=== PATIENT | female | born 1980 | race Caucasian/White ===

== ENCOUNTER 2025-05-21 19:53 | Emergency (ER) | payer BC, SELFPAY ==
--- OUTSIDE RECORDS SUMMARY | 2025-05-21 19:55 | XMS_ITS | Data Portability ---
Author Organization [place] - [facility], [employer] Address [address] [place] [address] Assessment Encounter Date Assessment Date Assessment LastModified by Organization Details LastModified Time 01/05/2025 01/05/2025 The clinical presentation and imaging findings are consistent with early insertional Achilles tendinitis, likely exacerbated by underlying Rhea s deformity and mechanical factors. Recommended a multi-modal conservative approach including strict use of supportive footwear (preferably clogs or mules to avoid pressure on the posterior heel), avoidance of barefoot walking, and use of [id number] orthotic inserts for additional arch support, especially during athletic activities. Provided a detailed home stretching and flexibility program targeting the Achilles and plantar fascia, emphasizing the need for consistent daily stretching for at least two months. Advised to avoid deep lunges, heavy lifting, running, jumping, and stair-stepping activities until symptoms resolve. For inflammation control, recommended ice application in the evening and heat in the morning, as well as a short course of oral steroids (Medrol dose pack) to reduce acute inflammation, with instructions to begin the medication the following morning and to monitor for side effects, especially in the context of concurrent phentermine use. Discussed the risks and benefits of oral steroids and provided instructions for use. Advised against corticosteroid injection at the Achilles insertion due to risk of tendon rupture. Provided education on topical anti-inflammatori es (Voltaren gel) as an adjunct. The mild Rhea s deformity is contributing to posterior heel irritation and Achilles symptoms. Emphasized the importance of shoe modifications to minimize pressure on the posterior heel. Discussed that surgical intervention is not indicated at this time given the mild nature and early presentation. Will monitor for progression. The plantar calcaneal spur is a chronic finding consistent with prior plantar fasciitis. No current symptoms attributable to this, so no intervention is required at this time. Advised on ongoing plantar fascia stretching to prevent recurrence. 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 No acute symptoms related to this structure. Recommended continued use of arch support and orthotics as needed for comfort and prevention of overuse symptoms. No current evidence of active plantar fasciitis. Provided education on prevention strategies and stretching. The patient s right foot demonstrates a flatter arch, likely related to the accessory navicular. Advised on the use of orthotics and supportive footwear to optimize biomechanics and reduce risk of future overuse injuries. Will follow up in 2-3 weeks to assess response to conservative management. florin Not available 01/05/2025 14:13:03 01/19/2025 01/19/2025 For the right Achilles tendinopathy, the patient was advised to continue with the current regimen of stretching exercises, heat in the morning, and ice at night. Supportive footwear and modified inserts were provided, including an additional heel lift and bilateral first-ray cutout, to further offload the Achilles and plantar fascia. The patient was instructed to avoid high-impact activities and to continue activity modifications at the gym. The clinical reasoning is based on persistent localized tenderness, morning stiffness, and improvement with conservative measures. For the new onset of right plantar heel pain, consistent with plantar fasciitis, a similar conservative approach was recommended. The patient was counseled to continue supportive shoes and inserts, and to use ice as needed. A two-week course of a prescription oral anti-inflammatory was prescribed to address ongoing inflammation, with dosing instructions provided. The patient was informed that if the plantar heel pain becomes the predominant issue or fails to improve, a corticosteroid injection could be considered as a next step. Referral to physical therapy for modalities such as deep tissue massage or dry needling was discussed as an option if symptoms persist beyond the next three weeks. The patient was advised to monitor symptoms and return sooner if there is significant worsening. Follow-up was scheduled in three weeks, with instructions to cancel if symptoms resolve. florin Not available 01/19/2025 12:14:13 02/09/2025 02/09/2025 For right planta r fasciitis, a corticosteroid injection was recommended and performed today to address persistent focal heel pain and inflammation not fully responsive to conservative measures, including stretching, orthotic modification, and NSAIDs. The patient was counseled regarding expected post-injection course, including the possibility of a transient steroid flare, and advised to use ibuprofen as needed for discomfort. Instructions were given to avoid high-impact or weighted activities until pain-free for at least two weeks, and to gradually reintroduce resistance and duration of exercise thereafter. Follow-up was recommended in two to three weeks, with the option to cancel if symptoms resolve. For right Achilles tendinopathy, the patient was advised to continue current stretching regimen, use of heat in the morning and ice at night, and to maintain use of the modified orthotics with heel lift. No additional intervention was deemed necessary at this time given reported improvement and absence of new symptoms. PROCEDURES: PLANTAR FASCIA INJECTION, RIGHT FOOT: Prior to the procedure, consent was obtained. A time-out confirmed correct patient, site, and laterality (right foot, plantar heel). The area was prepped with cold spray and allowed to dry. Using a sterile technique, a 27 gauge needle was used to inject a mixture of local anesthetic and corticosteroid (1cc of 2% lido plain, 1cc of Kenalog-40, ( J1100, 1 unit) and 1 cc of Dexamethasone (J3301, 4 units)) into the plantar fascia at the point of maximal tenderness, approaching from the medial aspect to minimize discomfort. The patient tolerated the procedure well. Hemostasis was achieved and a sterile dressing was applied. Post-procedure instructions were reviewed, including activity modification and signs of complications. florin Not available 02/09/2025 15:23:27 Plan of Treatment Reminders Order Date Submit Date Provider Last Modified By Organization Details Last Modified Time Details Appointments None recorded. Lab None recorded. Referral None recorded. Procedures None recorded. Surgeries None recorded. Imaging XR, foot, 3 or more view 2024 025 [facility] Office, [address], [place], [address], 16:29:32 Medication Orders meloxicam 7.5 mg tablet 2024 025 [facility] [id number] [facility] [employer], [address], [place], [address], 12:13:28 Medrol (Dario) 4 mg tablets in a dose pack 2024 025 [facility] [id number] [facility] [employer], [address], [place], [address], 5 14:13:25 Patient TargetsNo targets recorded. Patient InstructionsNo instructions recorded. Reason for Referral None Reported. Results Created Date Observation Date Name Description Value Unit Range Abnormal Flag Note LastModifiedBy Organization Detail LastModifiedTime 01/06/20 25 XR, foot, 3 or more view No observ ation record ed. [email or web address] [place] [facility] [address], [place], [address], 01/05/2025 14:10:23 Result Notes None recorded. Problems Name Problem SNOMED Code Status Onset Date Resolution Date Notes Provider Name and Address Organization Details Recorded Time Morbid obesity 977109371 Active 2021 Morbid obesity; Original Code: 086251446 Original Codesystmona m: SNOMED CT Classi fication: Medical C onfirmati on Status: Probable Not Available [facility] 3 08:54:19 Stress fracture of foot 018611181 Active 2021 Stress fracture of foot; Original Code: 776418035 6 Origina l Kathleen m: SNOMED CT Classi fication: Medical C onfirmati on Status: Confirmed Not Available [facility] 3 08:54:20 Metatarsal trevor 16139931 Active 2021 Metatarsa lgia; Original Code: 30017919 Original Codesystmona m: SNOMED CT Classi fication: Medical C onfirmati on Status: Confirmed Not Available [facility] 3 08:54:20 Problem Notes None recorded. Medical Equipment None Reported. Allergies Allergen ID Allergen Name Allergen Category Reaction Reaction Severity Criticality Documentation Date Start Date Code Code System Note Provider Name and Address Organization Details Recorded Time 38067 amoxicill in medicatio n Not available Not available Not available 10/22/2022 723 RxNorm Comme nt: React ion Class : Aller gy Al lergy Ident ifier : d0008 8 All ergy Categ ory: Multu m Drug Ident ifier Iden tifie r Assig adolfo Autho rity: 97943 _[place]_S PM_FI N ; Not Available [facility] 3 08:51:40 33799 Product containin g penicilli n (product) medicatio n Not available Not available Not available 01/05/2025 37126 8001 SNOMED Lorie Thomas null, [place] - [facility] 5 11:09:14 01811 codeine medicatio n Not available Not available Not available 01/05/2025 2670 RxNorm Lorie ramos, [place] - [facility] 5 11:09:23 Medications Name Sig Start Date Stop Date Status Note LastModified by Organization Details LastModified Time bupropion HCl SR 150 mg tablet,12 hr sustained-r elease TAKE 1 TABLET BY MOUTH TWO TIMES DAILY. active Not Available Not Available No t Available clindamycin HCl 300 mg capsule TAKE 1 CAPSULE (300 MG) BY MOUTH TWO TIMES DAILY FOR 7 DAYS. 01/05 completed Not Available Not Available Not Available metronidazo le 0.75 % (37.5 mg/5 gram) vaginal gel INSERT 1 APPLICATO RFUL INTO THE VAGINA AT BEDTIME FOR 5 DAYS. active Not Available Not Available No t Available topiramate 25 mg tablet TAKE 2 TABLETS BY MOUTH AT BEDTIME active Not Available Not Available No t Available phentermine 37.5 mg tablet PLEASE SEE ATTACHED FOR DETAILED DIRECTION S active Not Available Not Available No t Available phentermine 30 mg capsule PLEASE SEE ATTACHED FOR DETAILED DIRECTION S active Not Available Not Available No t Available meloxicam 7.5 mg tablet TAKE 1 TABLET BY MOUTH EVERY 12 HOURS active Not Available Not Available No t Available cephalexin 500 mg capsule TAKE 1 CAPSULE (500 MG) BY MOUTH TWO TIMES DAILY FOR 5 DAYS. 01/05 completed Not Available Not Available Not Available lisinopril 30 mg tablet TAKE 1 TABLET BY MOUTH ONCE DAILY. active Not Available Not Available No t Available methylpredn isolone 4 mg tablets in a dose pack TAKE 6 TABLETS ON DAY 1 DIRECTED ON PACKAGE AND DECREASE BY 1 TAB EACH DAY FOR A TOTAL OF 6 DAYS active Not Available Not Available No t Available betamethaso ne dipropionat e 0.05 % topical ointment PLEASE SEE ATTACHED FOR DETAILED DIRECTION S active Not Available Not Available No t Available metformin ER 500 mg tablet,exte nded release 24 hr PLEASE SEE ATTACHED FOR DETAILED DIRECTION S active Not Available Not Available No t Available nitrofurant oin monohydrate /macrocryst als 100 mg capsule TAKE 1 CAPSULE BY MOUTH TWO TIMES DAILY FOR 5 DAYS. 01/05 completed Not Available Not Available Not Available Vitals Date Recorded Body height Body weight Provider Name and Address Organization Details Last Updated DateTime 01/05/2025 172.72 cm 040614.63 g Lorie Thomas [place] [facility] 01/05/2025 11:08:57 Social History None recorded. Functional Status None recorded. Mental Status None recorded. Family History Nothing Reported. Medical History No medical history recorded. Gynecological HistoryNo gynecological history recorded. Obstetrics History GPAL:G 0 P 0 0 0 0 Past Encounters Encounter ID Performer Location Encounter Start Date Encounter Closed Date Diagnosis/Indication Diagnosis SNOMED-CT Code Diagnosis ICD10 Code Diagnosis IMO Codes Diagnosis Note [id number] SOLA LORENZO DPM [place] [facility] [address] [place] [address] 01/05/2025 11:07:47 01/05/2025 16:29:32 Right Achilles tendinitis [id number] 70997 M76.61 7853911 Total time spent on the E/M service was 45 minutes, which included reviewing patient history, performing a medically appropriat e examinatio n, counseling the patient, and documentin g clinical informatio n. This time excludes any procedures or imaging potentiall y obtained during this visit. 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 This time excludes any procedures or imaging potentiall y obtained during this visit. Calcaneal spur of right foot 0328526777 47510 M77.31 8121032 Congenital deformity of foot 658306187 Q66.89 0570816 Plantar fa scial fibromatosis 65223574 M72.2 1979 Acquired p es planus of right foot 8249532399 21257 M21.41 [id number] SOLA LORENZO DPM [place] [facility] [address] [facility] [address] [place] [address] 02/09/2025 14:56:35 02/10/2025 12:19:57 Right Achilles tendinitis [id number] 47453 M76.61 6391585 Calcaneal spur of right foot 7493639809 53873 M77.31 6110231 Congenital deformity of foot 841517847 Q66.89 6295194 Plantar fa scial fibromatosis 53635379 M72.2 1980 Acquired p es planus of right foot 5918615184 71737 M21.41 2977990 Health Concerns Section Related Observation LastModified by Organization Detai ls LastModified Time None Recorded Concern Status LastModified by Organization Details LastModified Time None Recorded Advance Directives Directive None Recorded Payers Insurance Date Sequence Insurance Name Policy Number Policy Clarke Covered Member ID Clarke Member ID Guarantor Name 02/28/2025 1 [employer] [id number] 3 Latanya Shelton [id number] MB Latanya Shelton Notes Date Note Type Note Provider Name and Address Organization Details Recorded Time 01/05/2025 text/html The patient presents as a new patient for evaluation of right-sided heel pain, ongoing for approximately two weeks. They describe the pain as being located at the back of the right heel, particularly along the Achilles region, and note that it is especially bothersome when going up and down stairs or putting weight on the area. The pain is described as sharp and shooting up the leg during these activities. There is no history of trauma, new shoes, increased activity, or occupational changes. 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 They deny any noticeable bruising or swelling. There is a history of previous pain on the bottom of the heel, but never in the current location. The patient reports that the pain is worse in the morning and improves somewhat with movement, but persists throughout the day and is aggravated by gym activities, though they have been able to modify their exercise routine. They have attempted self-care measures including ice, Tylenol, elevation, and stretching exercises as suggested by a family member, with only minimal relief. The patient s mother suggested plantar fasciitis, and the patient has tried morning stretches and flexing the foot. The patient also notes that their right knee has started to hurt, likely due to compensatory gait changes. There is a history of twisting the right ankle several times in the past, but no significant injuries or fractures. The patient reports a flatter arch on the right foot compared to the left, and has been told they have an accessory bone in the right foot. They have a history of plantar fasciitis but state that is not the current issue. SOLA LORENZO DPM [address] [place], [address], [facility] 01/05/2025 14:13:31 01/19/2025 text/html The patient presents for follow-up of right Achilles heel pain, reporting approximately 30% improvement since the last visit. They have been compliant with prescribed exercises, using heat in the morning and ice at night. A recent course of oral steroids provided some relief, taking the edge off the pain. However, after a busy weekend involving significant activity, including attending an outdoor graduation and painting, they experienced a notable increase in pain, particularly on Friday. The pain is described as worse when going down stairs and is most severe in the morning. The patient notes that while the Achilles pain persists, a new area of discomfort has developed on the bottom of the right heel, which started after the recent activity. They identify this as a separate but possibly related issue. The patient has been modifying activities at the gym, avoiding lunges, high steps, and high jumps, and has been using supportive footwear and inserts as previously recommended. No pain is reported during exercises when performed slowly. The patient expresses concern about the new heel pain and is interested in further management options. SOLA LORENZO DPM [address] [place], [address], [place] - [facility] 01/19/2025 12:14:21 02/09/2025 text/html The patient presents for follow-up of right Achilles tendinopathy and right plantar fasciitis. They report improvement in overall symptoms since the last visit, particularly with the use of prescribed meloxicam, which they state has been helpful. However, they continue to experience persistent pain localized to the bottom of the right heel, consistent with plantar fasciitis, describing the pain as approximately 6 out of 10 in severity. Morning tightness remains an issue, though it is less severe than previously. The patient has been compliant with stretching exercises, use of heat in the morning, ice at night, and modified orthotics with an additional heel lift and bilateral 1st ray straight cutouts. They deny any new injuries or significant changes in activity level, though they have avoided lunging and have limited their exercise to bodyweight activities. No recent imaging or outside work-up is reported. SOLA LORENZO DPM [address] [place], [address], [facility] 02/09/2025 15:23:42 OBGyn Episode No OBEpisode recorded.
--- OUTSIDE RECORDS SUMMARY | 2025-05-21 19:55 | XMS_ITS | Clinical Summary ---
Author Organization [facility] Address [address] [place] [id number] Care Team Providers Care Secret Code Expert Name Role Phone Nina Li RD Unavailable [phone] Pcp, No Primary Care Provider Unavailabl Tennille Blake Unavailable [phone] Allergies Active Allergy Reactions Criticality Noted Date Comments Amoxicillin Hives 08/25/2006 Acetaminophen-Codeine GI Upset 02/28/2009 Medications levonorgestrel intrauterine device (Mirena) 20 mcg/24 hours (7 yrs) 52 mg IUD Inject 1 Device intrauterine every 5 years. 0 07/19/20 21 Active multivitamin capsule Take 1 Capsule by mouth once daily. 0 10/27/19 22 Active lisinopriL (PRINIVIL; ZESTRIL) 30 mg tabletIndicatio ns:Hypertension , unspecified type Take 1 Tablet (30 mg) by mouth once daily. 90 Tablet 4 08/08/20 23 Active Lactobac no.41/Bifidobac t no.7 (PROBIOTIC-10 ORAL) 08/09/20 23 Active meloxicam 7.5 mg tablet Take 7.5 mg by mouth two times daily. Active buPROPion 150 mg Sustained-Relea se tabletIndicatio ns:Obesity, Class III, BMI 40-49.9 (morbid obesity) (HC) Take 1 Tablet (150 mg) by mouth two times daily. 180 Tablet 01/28/20 25 Active phentermine 37.5 mg tabletIndicatio ns:Obesity, Class III, BMI 40-49.9 (morbid obesity) (HC) Take 1 Tablet (37.5 mg) by mouth once daily before a meal. Take before breakfast. Phentermine will need to be discontinued 4 days prior to a surgical procedure. 90 Tablet 01/28/20 25 Active topiramate 25 mg tabletIndicatio ns:Obesity, Class III, BMI 40-49.9 (morbid obesity) (HC) Take 2 Tablets (50 mg) by mouth at bedtime. 180 Tablet 01/28/20 25 Active metFORMIN (GLUCOPHAGE XR) 500 mg Extended-Releas e tabletIndicatio ns:Obesity, Class III, BMI 40-49.9 (morbid obesity) (HC) TAKE 2 TABLETS (1,000 MG) BY MOUTH TWICE A DAY WITH MEALS 360 Tablet 05/06/20 25 Active metFORMIN 500 mg Extended-Releas e tabletIndicatio ns:Obesity, Class III, BMI 40-49.9 (morbid obesity) (HC) Take 2 Tablets (1,000 mg) by mouth two times daily with meals. 360 Tablet 01/28/20 25 2024 Discontinued Active Problems Problem Noted Date Diagnosed Date Morbid obesity with BMI of 50.0-59.9, adult 10/16 Weight gain 10/26/2021 IUD (intrauterine device) in place 09/12/2021 Overview (09/12/2021): Mirena Obesity, morbid, BMI 50 or higher 12/05/2015 Tonsillar hypertrophy 12/05/2015 Vitamin D deficiency 10/11/2015 HTN (hypertension) 06/14/2008 Overview (10/31/2009): Updated by system to replace inactive record JOSSIE 09/10/2010 AHI-13 Overview (09/24/2010): AHI 13 Pap smear for cervical cancer screening Overview (09/18/2021): 08/2021 NIL/HPV negative. Plan: Pap/HPV due 08/2026 Resolved Problems Problem Noted Date Diagnosed Date Resolved Date Supervision of other normal 09/29/2006 04/07/2007 Infections of genitourinary tract antepartum 7 04/07/2007 Transient hypertension of pr egnancy, unspecified as to episode of care 08/25/20062006 Encounters Date Type Department Care Team Description 05/06/[address] [phone] Tennille Abernathy PA Refill Request (Metformin) from Last 3 Months Immunizations Immunization Administration Dates Next Due AMB Influenza, IIV4 PF (=>6 mos Flulaval,Fluzone Fluarix)(Flu Clinic Only) 06/01/2015 COVID-19 VACCINE SPIKEVAX (M ODERNA 50MCG/0.5ML) 12YO+ PFS 07/23/2024 COVID-19 vaccine (Pfizer-Bio NTech 30mcg/0.3mL) 12YO+ BIVALENT PF, MDV 07/22/2022 COVID-19 vaccine (Pfizer-Bio NTech 30mcg/0.3mL) PF, MDV 08/23/2021 INFLUENZA, IIV3 PF (AGE >= 6 MO) 07/23/2024 Influenza, IIV3 (Age >=3 years) 05/29/2010,06/14,08/25/2006 Influenza, IIV4 10/02/2023,,07/26/2021,2017 Td (Age >=7 Years) 12/05/2003 Tdap 11/05/2017 Family History Medical History Relation Name Comments Hypertension Father Thyroid Disease Father hyper Heart attack Maternal Grandfather Obesity Maternal Grandfather Hyperlipidemia Maternal Grandmother Hypertension Maternal Grandmother Obesity Maternal Grandmother Other Maternal Grandmother MS Hypertension Mother Obesity Mother Hypothyroidism Paternal Aunt Cancer Paternal Grandfather lung Other Paternal Grandmother MS Relation Name Status Comments Brother Alive Father Alive Maternal Grandfather Maternal Grandmother Alive Mother Alive Paternal Aunt Alive Paternal Grandfather Paternal Grandmother Alive Sister Alive Son Alive Social History Tobacco Use Types Packs/Day Years Used Date Smoking Tobacco: Never Smokeless Tobacco: Never Tobacco Cessation:Counseling Given: Not Answered Alcohol Use Standard Drinks/Week Comments Yes 0 (1 standard drink = 0.6 oz pur e alcohol) rare PHQ-2 Answer Date Recorded PHQ-2 TOTAL SCORE 1 08/08/2023 Social Connections Answer Date Recorded Do you often feel lonely or isolated from those around you? 0 07/23/2024 Financial Resource Strain Answer Date R ecorded Difficulty of Paying Living Expenses 3 07/23/2024 Difficulty of Paying Living Expenses Not on file 07/23/2024 Food Insecurity Answer Date Recorded Do you worry your food will run out before you are able to buy more? 1 07/23/2024 Transportation Needs Answer Date Record ed Does lack of transportation keep you from medica l appointments? 1 07/23/2024 Does lack of transportation keep you from work, meetings or getting things that you need? 1 07/23/2024 Housing Stability Answer Date Recorded What is your housing situation today? 1 07/23/2024 Utilities Answer Date Recorded Do you have trouble paying f or utilities (for example, heat, electricity, water, phone)? 1 07/23/2024 Comments No Sex and Gender Information Value Date Recorded Sex Assigned at Female 08/22/2021 7:37 PM MEDICAL VOUCHER CLERK Legal Sex Female 5:23 AM MEDICAL VOUCHER CLERK Gender Identity Female 08/22/2021 7:37 PM MEDICAL VOUCHER CLERK Sexual Orientation Not on file Occupation Industry Job Start Date Job End Date Diploma [employer] Not on file Not on file Not on f ile Obstetrics History Para Term AB IAB SAB Ectopic Multiple Livin g Live Births 4 2 2 0 0 0 0 0 2 2 Date Outcome GA Total Labor Labor/2nd/3rd Weight Sex Type Anes PTL Elisabeth A1 A5 Name Clin Term Term 2003 39w 0d 3.29 kg (7 lb 4 oz) M Vag IV Meds Livin g Armando Drevl ow Delivery Location:[facility] 2006 39w 0d 4h 00m/ 3.15 kg (6 lb 15 oz) F VAGINA L ETIENNE IV Meds Livin g 9 9 Hortensia Drevl ow Delivery Location:[facility] Comments:stone bulb fo r gestational hypertension Comments blood type B postive Last Filed Vital Signs Vital Sign Reading Time Taken Comments Blood Pressure 134/78 01/27/2025 11:00 AM CDT Pulse 74 01/27/2025 11:00 AM CDT Temperature 36.9 C (98.5 F) 09/22/2023 8:03 AM MEDICAL VOUCHER CLERK Respiratory Rate 18 09/22/2023 8:03 AM MEDICAL VOUCHER CLERK Oxygen Saturation 99% 08/04/2024 8:56 AM MEDICAL VOUCHER CLERK Inhaled Oxygen Concentration - - Weight 147.4 kg (325 lb) 01/27/2025 12:00 PM CDT Height 173.1 cm (5' 8.15) 01/27/2025 12:00 PM C DT Body Mass Index 49.2 01/27/2025 12:00 PM CDT Plan of Treatment Upcoming Encounters Date Type Department Care Team (Late st Contact Info) Description 05/25/2025 2:00 PM CDT Nutrition/Dieticia n [address] [phone] Christine Krause, ISA [address] [place] [address] 05/26/2025 8:30 AM CDT Office Visit [facility] [address] [place] [address] Tennille Abernathy PA [address] [place] [address] Health Maintenance Due Date Last Done Comments Hepatitis B series for 19+ (1 of 3 - 19+ 3-dose series) 2001 HPV series for age 9-45 (1 - 3-dose SCDM series) 2009 Depression screening for age 12+ 08/08/2024 08/08/2023, 07/17/2023, 07/17/2023, Additional history exists Influenza Vaccine (#1) 2025 4, 10/02/2023, 07/22/2022, Additional history exists BMI (ht and wt on same day) for age 18+ 01/27/2026 01/27/2025, 01/27/2025, 10/28/2024, Additional history exists Pap test for age 21-65 08/23/2026 2, 08/23/2021, 11/05/2017, Additional history exists Tetanus booster 11/06/2027 11/05/2017, 12/05/2003 RSV vaccine for adults or (1 - 1-dose 75+ series) 2057 Hepatitis C screening for age 18-79 Completed 07/22/2022 HIV for age 15-65 Completed 08/08/2023 COVID-19 vaccine series Completed 07/23/20 24, 07/22/2022, 08/23/2021, Additional history exists Pneumococcal series for age 6-49 Aged Out No longer eligible based on patient's age to complete this topic Procedures Procedure Name Priority Date/Time Associated Diagnosis Comments ANTI HIV 1/2 Routine 08/08/2023 11:10 AM MEDICAL VOUCHER CLERK Screening for condition ANTI HCV Routine 07/22/2022 8:29 AM MEDICAL VOUCHER CLERK Need for hepatitis C screening test HPV HIGH RISK Routine 08/23/2021 9:25 AM MEDICAL VOUCHER CLERK Screening for cervical cancer from Last 3 Months or Most Recently Relevant to Health Maintenance Results * ANTI HIV 1/2 (08/08/2023 11:10 AM MEDICAL VOUCHER CLERK) Pathologist [facility] HIV-1/HIV-2 SCREEN Non-Reacti ve Non-Reacti ve 08/08/2023 9:14 PM MEDICAL VOUCHER CLERK [facility] Comment:HIV-1 p24 and HIV-1/ HIV-2 Ab Not Detected. Blood BLOOD SPECIMEN / Unknown Venipuncture / Unknown 08/08/2023 11:10 AM MEDICAL VOUCHER CLERK 08/08/2023 11:13 AM MEDICAL VOUCHER CLERK us Ander Lo DO SEND OUTS Final Res ult [facility] [address] [place] [address], * ANTI HCV (07/22/2022 8:29 AM MEDICAL VOUCHER CLERK) HEPATITIS C ANTIBODY Non-React ella Non-React ella 07/22/2022 2:15 PM MEDICAL VOUCHER CLERK [facility] Comment:Antibodies to HCV no t detected; does not exclude the possibility of exposure to HCV. Blood BLOOD SPECIMEN / Unknown Venipuncture / Unknown 07/22/2022 8:29 AM MEDICAL VOUCHER CLERK 07/22/2022 8:31 AM MEDICAL VOUCHER CLERK Ander Guerrero Teresita DO SEND OUTS Final Res ult [facility] [address] [place] [address], * HPV HIGH RISK (08/23/2021 9:25 AM MEDICAL VOUCHER CLERK) TYPE 16 Negative Negative 08/27/2021 11:22 AM MEDICAL VOUCHER CLERK [facility] TYPE 18 Negative Negative 08/27/2021 11:22 AM MEDICAL VOUCHER CLERK [facility] OTHER HIGH RISK TYPES Negative Negative 08/27/2021 11:22 AM MEDICAL VOUCHER CLERK [facility] Other (Cervical) Non-Blood / Unknown 08/23/2021 9:25 AM MEDICAL VOUCHER CLERK 08/23/2021 5:15 PM MEDICAL VOUCHER CLERK Narrative [facility] - 08/27/2021 11:22 AM MEDICAL VOUCHER CLERK HPV types 16, 18, 31, 33, 35, 39, 45, 51, 52, 56, 58, 59, 66 and 68 DNA were undetectable or below the pre-set threshold. Methodology: Brayan Cielo 4800 HPV Test Ander Hallmarixa Lo DO MICROBIOLOGY Final Res ult Performing Organization Address City/[facility]/ZIP Co de Phone Number [facility] [address] [place] [address], from Last 3 Months or Most Recently Relevant to Health Maintenance Insurance [phone] [id number] (Work) [address] [place] [address] [facility] MED[facility] Advance Directives * Full Code (Latest Code Status on File) Date Activated Date Inactivated Comments 08/07/2022 10:39 AM 08/08/2022 2:28 AM Question Answer Comments Code Status Discussion: Reviewed Preferences * Full Code Date Activated Date Inactivated Comments 08/07/2022 9:09 AM 08/07/2022 10:39 AM Question Answer Comments Code Status Discussion: Reviewed Preferences Care Teams Secret Code Expert Relationship Specialty Start Date End Date Pcp, No . PCP - General 12/01/[address] [place] [address] Geoscientist 01/22/22 Tennille Abernathy PA [address] [place] [id number] Physician Drop Hammer Set Up Operator 01/18/25
[2025-05-21 20:12] VITALS: BP 160/102; PULSE 82; RESP 16; TEMP 36.7; O2SAT 98; BMI 51.2
[2025-05-21 20:26] LABS: Appearance Urine Clear (Clear)
[2025-05-21 20:30] LABS: Ur HCG Qualitative* Negative (Negative)
--- NOTE | 2025-05-21 21:00 | CRLHL7_ITS ---
For Patients: As a result of the Century Cures Act, medical imaging exams and procedure reports are released immediately into your electronic medical record. You may view this report before your referring provider. If you have questions, please contact your health care provider. Indication: Left abdominal pain, left lower back pain Technique: CT through the abdomen and pelvis following 100 mL Isovue 370 IV contrast Comparison: None Findings: Lower chest: No acute abnormality appreciated. Hepatobiliary: No significant parenchymal abnormality is appreciated. Spleen: Unremarkable. Pancreas: No acute abnormality appreciated. Adrenal glands: No acute abnormality appreciated. Kidneys: Punctate nonobstructing right renal stone. Bowel: No obstruction. No focal perienteric or pericolonic stranding is appreciated. The appendix is visualized and appears unremarkable. Vascular: No acute abnormality appreciated. Lymph nodes: No gross lymphadenopathy. Peritoneum: No free air. No free fluid. : Bilateral simple appearing ovarian/adnexal cysts measuring 4.3 centimeters on the right and 3.6 centimeters on the left. IUD present. Soft tissues: No acute abnormality appreciated. Bones: No acute fracture. No lytic or blastic lesion. Degenerative changes of the spine and pelvis. Impression: Bilateral simple appearing ovarian/adnexal cyst measuring 4.3 centimeters on the right and 3.6 centimeters on the left, overall poorly evaluated by this examination. Pelvic ultrasound would be recommended if there is concern for acute pelvic pathology. No other findings seen to account for patient`s reported symptoms. Please note that all CT scans at this facility use dose modulation, iterative reconstruction, and/or weight-based dosing when appropriate to reduce radiation dose to as low as reasonably achievable. Dictated by Aamir Blankenship MD @ 05/21/2025 10:16:06 PM (Electronically Signed)
[2025-05-21] MEDS: ONDANSETRON 2 MG/ML inj 4 MG IVP (21:34)
[2025-05-21 21:43] LABS: Lactate Sepsis w/Reflex* 0.7 mmol/L (0.5-1.9)
[2025-05-21 21:45] LABS: Hematocrit* 39.8 % (33.0-51.0); Hemoglobin* 13.4 gm/dL (12.0-16.0); Immature Granulocytes Abs Auto 0.03 K/uL (0.00-0.30); Immature Granulocytes Pct Auto 0.4 %; Lymphocytes Absolute Auto 2.74 K/uL (0.90-2.90); Mean Corpuscular HGB Conc 34 gm/dL (32-36); Mean Corpuscular Hemoglobin 32 pg (26-34); Mean Corpuscular Volume 95 fL (80-100); RDW Coefficient of Variation % 12.6 % (11.5-15.5); Red Blood Count* 4.21 m/uL (4.00-5.20); White Blood Count* 7.40 K/uL (4.50-11.00)
[2025-05-21 21:46] LABS: Slide Review Reflex No
[2025-05-21 22:04] LABS: Albumin* 3.9 g/dL (3.3-5.0); Chloride* 103 mmol/L (96-114); Potassium* 4.1 mmol/L (3.6-5.1); Sodium* 135 mmol/L (135-149)
[2025-05-21 22:07] LABS: Alanine Aminotransferase* 20 U/L (4-35); Alkaline Phosphatase* 72 U/L (40-150); Anion Gap 4 mEq/L (7-15); Aspartate Amino Transferase* 25 U/L (12-35); Bilirubin Total* 0.3 mg/dL (0.1-1.5); Blood Urea Nitrogen* 18 mg/dL (5-24); Calcium* 9.2 mg/dL (8.4-10.6); Carbon Dioxide* 28 mmol/L (20-32); Creatinine* 0.8 mg/dL (0.5-1.5); Est. Creatinine Clearance* 91.47; Estimated Glomerular Filt Rate 94 ml/min; Glucose* 88 mg/dL (60-115); Total Protein* 7.0 g/dL (6.0-8.3)
--- NOTE | 2025-05-21 22:33 | ED.GENADULT ---
HPI - General Adult General Chief complaint: Flank Pain Stated complaint: Middle left back pain, increasing to abdomen Time Seen by Provider: 05/21/25 20:37 Source: patient Mode of arrival: ambulatory Limitations: no limitations History of Present Illness HPI narrative: 45-year-old female presents to the emergency department with pain in the left flank area that was present upon awakening, initially dull and achy then became sharp and radiating around the side of the left abdomen down to the left groin area for the past several hours. No fever. No nausea and vomiting. Bowels have been moving normally. No trauma or injury. Tried taking oral pain medications with no significant improvement in symptoms. She denies any chance of . She has had a tubal ligation and also has an IUD in place. She has no gynecological changes. No dysuria, no hematuria. No prior history of similar symptoms. Says that she felt slightly sweaty and clammy at home but no other systemic symptoms have been noted. No prior workup for similar symptoms. . Past medical history notable for obesity, PCOS, hypertension. Home meds are lisinopril, metformin, topiramate, phentermine and bupropion. Nonsmoker. ROS is notable for the abdominal symptoms only, otherwise denies times 12 systems. Related Data Home Medications ?Medication ?Instructions ?Recorded ?Confirmed betamethasone dipropionate 0.05 % topical 05/21/25 topical ointment bupropion HCl 150 mg tablet,12 hr 150 mg PO BID 05/21/25 05/21/25 sustained-release lisinopril 30 mg tablet 30 mg PO DAILY 05/21/25 05/21/25 meloxicam 7.5 mg tablet 7.5 mg PO Q12H 05/21/25 05/21/25 metformin 500 mg tablet,extended mg PO 05/21/25 release 24 hr phentermine 30 mg capsule mg PO 05/21/25 topiramate 25 mg tablet 50 mg PO QPM 05/21/25 05/21/25 Allergies Allergy/AdvReac Type Severity Reaction Status Date / Time amoxicillin AdvReac Hives Verified 05/21/25 22:50 codeine AdvReac Hives Verified 05/21/25 22:50 PFSH PFSH Social History Smoking Status: Never smoker Do you use any of these nicotine containing products: None How often do you have a drink containing alcohol: never How often do you have six or more drinks on one occasion: Never AUDIT-C Alcohol total score: 0 Non-prescribed substance use: denies use service: No Exam Const: Vital Signs, click to edit/add: Vital Signs - 24 hr 05/21/25 20:12 05/21/25 22:50 Temperature 98.1 F Pulse Rate [Pulse Oximeter] 82 74 Respiratory Rate 16 18 Blood Pressure [Ri ght Upper Arm] 160/102 H 139/82 Pulse Oximetry 98 Oxygen Delivery Me thod Room Air Documenting provider has reviewed patient's vital signs: yes Common normals: no apparent distress and alert General appearance: cooperative Other: Seems uncomfortable but redirects normally. Appears well nourished, well hydrated. HENMT: Common normals: normocephalic, moist oral mucous membranes and oropharynx normal Head and scalp: normocephalic Face and sinus: normal facial exam Mouth: oral and palatal mucosa normal Eye: Common normals: conjunctivae normal General eye: normal appearance of both eyes Conjunctiva: conjunctiva(e) normal Neck & C-Spine: Common normals: full ROM General: normal visual inspection Resp: Common normals: normal respiratory effort, no use of accessory muscles and clear to auscultation bilaterally Effort & inspection: able to speak in complete sentences Auscultation: clear to auscultation bilaterally Cardio: Common normals: regular rate, regular rhythm, S1 normal heart sound, S2 normal heart sound and no murmurs Rate: regular rate Rhythm: regular rhythm Heart sounds: S1 normal and S2 normal GI: Common normals: Normal to inspection, nondistended, normoactive bowel sounds present, soft to palpation and no hepatosplenomegaly Palpation: soft and no hepatosplenomegaly Other: Tender left mid abdomen. But certainly no rebound tenderness or guarding. No mass. : Other: There is tenderness to palpation of the left CVA area but it was not reproducible on exam consistently. Back & Pelvis: Common normals: thoracic and lumbar spine normal to inspection Extremity: Common normals: normal to inspection, normal capillary refill and no pedal edema Neuro: Common normals: moves all extremities Sensorium/orientation: alert Speech: speech normal Gait (neuro): normal gait Psych: Appearance: grossly normal Attitude: engaged Insight: insight good Judgement: judgment good Skin: Common normals: no rashes or lesions noted General skin exam: no rashes or lesions noted Course Course ED Course: 45-year-old female with left flank area pain now radiating into the left groin. Differential diagnosis is suspicious for kidney stone. Cannot exclude musculoskeletal etiology, diverticulitis, pyelonephritis, complicated urinary infection, pelvic abnormality, colitis, inflammatory bowel disease, unusual presentation of pancreatitis or other intra-abdominal pathology. Patient seems quite bothered by the pain. Will place peripheral IV, give 0.5 mg of Dilaudid, 1 L of normal saline. Await urinalysis. Update: Urinalysis does not show blood or infection. I do not think that this is a kidney stone. Will proceed with CT of the abdomen and pelvis with contrast. Typical intra-abdominal labs, await findings. Reevaluation(s) Reevaluation #1: Update: CT does not show any significant intra-abdominal pathology, radiology does not comment on the degenerative changes of the spine which are present as well. Counseled patient that I think this might be the etiology of her symptoms. Rationale discussed. Recommended prednisone 40 mg p.o. x1 here in the ED then continue on 20 mg p.o. b.i.d. x5 days. Will give tramadol and Toradol for pain. Prescriptions for cyclobenzaprine and tramadol provided. Counseled patient that it is important that she is getting further workup and treatment for this condition as she is likely to have flares again in the future. Information on the condition as well as lower back exercises were discussed as well. Handouts given on this. She will need physical therapy. She can self refer or follow-up with her primary care provider for referral. If symptoms are not improving in a few weeks, consider more advanced imaging like an MRI. Counseled that the steroids to have some side effects but starting them sooner as opposed to waiting until morning does tend to yield faster results. May cause some insomnia, discussed. She will use Tylenol and ibuprofen as her primary means of pain control, saving the cyclobenzaprine or tramadol for severe pain not relieved by the [id number] options. Try to wean off the tramadol as soon as possible. Most people start to have improvement after 48 hours on the prednisone, if no improvement within a few days, primary care follow-up for further guidance and direction. Alarm symptoms like loss of bowel bladder function, severe neurological changes, weakness in the legs consider were reviewed as indications to come back to the ED. She verbalizes understanding and agreement. Vital Signs Vital signs: Initial Vital Signs Temperature 98.1 F 05/21/25 20:12 Temperature Source Temporal Artery Scan 05/21/25 20:12 Pulse Rate 82 05/21/25 20:12 Respiratory Rate 16 05/21/25 20:12 Blood Pressure 160/102 H 05/21/25 20:12 Blood Pressure Mean 121 H 05/21/25 20:12 Blood Pressure Position Sitting 05/21/25 20:12 Pulse Oximetry 98 05/21/25 20:12 Oxygen Delivery Method Room Air 05/21/25 20:12 Vital Signs Temperature 98.1 F 05/21/25 20:12 Pulse Rate 82 05/21/25 20:12 Respiratory Rate 16 05/21/25 20:12 Blood Pressure 160/102 H 05/21/25 20:12 Pulse Oximetry 98 05/21/25 20:12 Oxygen Delivery Method Room Air 05/21/25 20:12 Temperature 98.1 F 05/21/25 20:12 Pulse Rate 74 05/21/25 22:50 Respiratory Rate 18 05/21/25 22:50 Blood Pressure 139/82 05/21/25 22:50 Pulse Oximetry 98 05/21/25 20:12 Oxygen Delivery Method Room Air 05/21/25 20:12 Medications Administered Medications: Discontinued Medications Generic Name Dose Route Start Last Admin Trade Name Freq PRN Reason Stop Dose Admin Hydromorphone HCl 0.5 mg 05/21/25 21:00 05/21/25 21:35 Hydromorphone 0.5 Mg/0.5 Ml Inj IVP 05/21/25 21:01 0.5 mg ONCE ONE Administration Sodium Chloride 1,000 mls @ 1,000 mls/hr 05/21/25 21:01 05/21/25 23:01 0.9 % Sodium Chloride 1000 Ml IV 05/21/25 22:00 Infused .Q1H SASHA Infusion Ondansetron HCl 4 mg 05/21/25 21:00 05/21/25 21:34 Ondansetron 2 Mg/Ml Inj IVP 05/21/25 21:01 4 mg ONCE ONE Administration Prednisone 40 mg 05/21/25 22:32 05/21/25 22:59 Prednisone 20 Mg Tablet PO 05/21/25 22:33 40 mg ONCE ONE Administration Tramadol HCl 50 mg 05/21/25 22:32 05/21/25 22:58 Tramadol Hcl 50 Mg Tablet PO 05/21/25 22:33 50 mg ONCE ONE Administration Medical Decision Making Lab Data Labs: Lab Results 05/21/25 05/21/25 05/21/25 Range/Units 20:11 20:23 21:35 WBC 7.40 (4.50-11.00) K/uL RBC 4.21 (4.00-5.20) m/uL Hgb 13.4 (12.0-16.0) gm/dL Hct 39.8 (33.0-51.0) % MCV 95 (80-100) fL MCH 32 (26-34) pg MCHC 34 (32-36) gm/dL RDW Coeff of [place] 12.6 (11.5-15.5) % Plt Count 263 (140-440) K/uL Neut % (Auto) 53.0 (42.0-72.0) % Lymph % (Auto) 37.0 (20-44) % [place] % (Auto) 6.2 (0.0-11.0) % Eos % (Auto) 2.7 (0.0-7.0) % Baso % (Auto) 0.7 (0.0-3.0) % Neut # (Auto) 3.92 (1.7-7.0) K/uL Lymph # (Auto) 2.74 (0.90-2.90) K/uL [place] # (Auto) 0.50 (0.00-0.90) K/UL Eos # (Auto) 0.20 (0.00-0.50) K/uL Baso # (Auto) 0.05 (0.00-0.30) K/uL Abs Immat Gran (auto) 0.03 (0.00-0.30) K/uL Imm/Tot Granulo (auto) 0.4 % Sodium 135 (135-149) mmol/L Potassium 4.1 (3.6-5.1) mmol/L Chloride 103 (96-114) mmol/L Carbon Dioxide 28 (20-32) mmol/L Anion Gap 4 L (7-15) mEq/L BUN 18 (5-24) mg/dL Creatinine 0.8 (0.5-1.5) mg/dL Estimated Creat Clear 91.47 Estimated GFR 94 ml/min Glucose 88 (60-115) mg/dL Lactate 0.7 (0.5-1.9) mmol/L Calcium 9.2 (8.4-10.6) mg/dL Total Bilirubin 0.3 (0.1-1.5) mg/dL AST 25 (12-35) U/L ALT 20 (4-35) U/L Alkaline Phosphatase 72 (40-150) U/L C-Reactive Protein 0.6 (0.5-1.0) mg/dL Total Protein 7.0 (6.0-8.3) g/dL Albumin 3.9 (3.3-5.0) g/dL Lipase 82 (23-300) U/L Urine Color Yellow (Yellow) Urine Appearance Clear (Clear) Urine pH 6.0 (5.0-8.5) Ur Specific [place] >= 1.030 (1.000-1.030) Urine Protein Negative (Negative) Urine Glucose (UA) Negative (Negative) Urine Ketones Negative (Negative) Urine Blood Negative (Negative) Urine Nitrite Negative (Negative) Urine Bilirubin Negative (Negative) Urine Urobilinogen 0.2 (0.2-1.0) Ur Leukocyte Esterase Negative (Negative) Urine RBC 0-2 (0-2) Urine WBC 5-10 A (0-5) Ur Squamous Epith Cells Few (None-Few) Urine Bacteria Few A (None) Urine HCG, Qual Negative (Negative) Discharge Plan Discharge Clinical Impression: Acute left lumbar radiculopathy Patient Disposition: Home, Self-Care Condition: Stable Instructions: Lumbar Radiculopathy (ED), Lower Back Exercises (ED) Additional Instructions: As we discussed, your blood work and CT scan look very reassuring. There are no signs of infection, pancreatitis, kidney problems, liver problems, urine infection, kidney stones, etc.. The 1 thing that does stand out on the CT scan to me that is not in your formal report is that you do have a fair amount of osteoarthritis in your spine. There are some spurs and even some other changes suggest that this pain is likely wrapping around from the nerves in your back. This can be a frustrating type of pain and may come on rather suddenly even though those arthritis changes have been present for quite some time. Because of this, I recommend that we start you on prednisone 20 mg twice daily for 5 days. We have given you a dose here in the emergency room. You will take your next dose Friday morning with food. You do not have to space her doses apart exactly 12 hours, I specifically do not recommend that you take it within 3 hours of bedtime as it can worsen insomnia. For most people, there pain is markedly better 48 hours after starting the prednisone. It is important that you see her primary care doctor next week for referral to physical therapy if you need a referral or that you start physical therapy self-referred if you are able to do so. For most people, there pain and symptoms markedly improved after 4-6 weeks of physical therapy. An MRI can typically be performed after a course of physical therapy if adequate relief is not found. For pain, I want you taking 1000 mg of Tylenol every 6 hours. At in ibuprofen 600 mg every 6 hours on top of this if the Tylenol is not enough. I have also given her prescription for cyclobenzaprine which is a muscle relaxant that you can take 10 mg at bedtime if needed for pain. I will also give you a small supply of tramadol, a dental or narcotic pain medication to use if the others are not effective enough. Try to use the tramadol sparingly and wean off as soon as possible. He should come to emergency room if you have sudden onset of loss of bowel and bladder control, severe weakness in the legs or other unexpected severe neurological changes. Activity Level: Activity as Tolerated Discharge Diet: Regular Prescriptions: No Action bupropion HCl 150 mg tablet sustained-release 12 hr 150 mg PO BID topiramate 25 mg tablet 50 mg PO QPM phentermine 30 mg capsule PO meloxicam 7.5 mg tablet 7.5 mg PO Q12H lisinopril 30 mg tablet 30 mg PO DAILY betamethasone dipropionate 0.05 % ointment topical metformin 500 mg tablet extended release 24 hr PO Follow Up/Referrals: Provider,Not a Local [Primary Care Provider, Family Practice] Stand Alone Forms: [employer] Info Instructions
[2025-05-21 22:50] VITALS: BP 139/82; PULSE 74; RESP 18
[2025-05-21] MEDS: TRAMADOL HCL 50 MG TABLET PO (22:58)
== END 2025-05-21 23:02 | disposition home or self-care (01) ==
PROVIDERS: Emergency Medicine; Emergency Provider Family Medicine
DX: M54.16 Radiculopathy, lumbar region (principal); R61 Generalized hyperhidrosis
CPT/HCPCS: 36415; 74177; 80053; 81001; 81025; 83605; 83690; 85025; 86140; 87086; 96361; 96374; 96375; 99284; 99285; A9270; J1171; J2405; J7030; J7512; Q9967